=== PATIENT | male | born 1955 | race Caucasian/White ===

== ENCOUNTER 2021-08-14 16:45 | Emergency (ER) | payer OTHER, SELFPAY ==
[2021-08-14 17:00] VITALS: BP 122/81; PULSE 95; RESP 16; TEMP 36.8; O2SAT 98
--- NOTE | 2021-08-14 17:25 | ED.SKABFB ---
HPI - Skin/Abscess/Foreign Bdy General Chief complaint: Skin/Abscess/Foreign Body Stated complaint: poison valente Time Seen by Provider: 08/14/21 17:18 Source: patient and RN notes reviewed Mode of arrival: ambulatory Limitations: no limitations History of Present Illness HPI narrative: Patient presents today complaining of poison valente to the bilateral arms and face since yesterday, significantly worse today. He was exposed 2 days ago when he was cleaning brush at home. He has tried some topical Benadryl without relief. Denies shortness of breath, difficulty swallowing, swelling in the mouth. MD complaint: rash Related Data Home Medications Medication Instructions Recorded Confirmed amlodipine 5 mg PO DIRECTED 08/14/21 08/14/21 carbamazepine 200 mg PO DIRECTED 08/14/21 08/14/21 clopidogrel 75 mg PO DAILY 08/14/21 08/14/21 fluoxetine 20 mg PO DAILY 08/14/21 08/14/21 metformin 500 mg PO DIRECTED 08/14/21 08/14/21 metoprolol tartrate 25 mg PO DIRECTED 08/14/21 08/14/21 simvastatin 40 mg PO DIRECTED 08/14/21 08/14/21 Allergies Allergy/AdvReac Type Severity Reaction Status Date / Time No Known Allergies Allergy Unverified 08/14/21 17:07 Review of Systems Review of Systems: CONSTITUTIONAL: Denies body aches, fever, chills, or sweats. EYES: Denies visual changes, redness, or discharge. ENT: Denies rhinorrhea, congestion, sore throat, or otalgia. CARDIOVASCULAR: Denies chest pain, palpitations, or edema. RESPIRATORY: Denies cough or dyspnea. GASTROINTESTINAL: Denies abdominal pain, nausea, vomiting, or diarrhea. GENITOURINARY: Denies dysuria or hematuria. SKIN: Denies wounds.+ Pruritic rash MUSCULOSKELETAL: Denies back pain, joint pain, or myalgia. NEUROLOGIC: Denies headache, numbness, tingling, or weakness. PSYCH: Denies depression or anxiety. [facility]LY [facility] Past Medical History Medical History (Updated 08/14/21 @ 17:34 by Arin Shields, PSYCHOLOGICAL OPERATIONS SPECIALIST, ) CVA (cerebral vascular accident) Depression Epilepsy High cholesterol Hypertension Comments At time of signature, I have reviewed and agree with nursing past medical, surgical, social and family history unless otherwise noted. Please see nursing chart for further information. There is no relevant family history pertinent to the presenting complaint Exam Narrative: GENERAL: Well-appearing, well-nourished, and in no acute distress. HEAD: Normocephalic, atraumatic. EYES: EOMI. No redness or drainage. Conjunctivae normal. ENT: Mucous membranes pink and moist. NECK: Normal AROM. CHEST: No respiratory distress. EXTREMITIES: Normal range of motion. No edema. SKIN: Warm, dry. Capillary refill normal. Normal skin turgor. Erythematous maculopapular rash to the entire bilateral anterior forearm extending to the antecubital fossa and to the left bicep. Erythematous macular rash surrounds both eyes and above the left eyebrow, and slightly on the nasal bridge. NEURO: No focal deficits. Alert and oriented x3. Gait steady. PSYCH: Normal affect. No signs of depression or anxiety. Course Course Level of Care: Express Care Visit Vital Signs Vital signs: Vital Signs Temperature 98.3 F 08/14/21 17:00 Pulse Rate 95 08/14/21 17:00 Respiratory Rate 16 08/14/21 17:00 Blood Pressure 122/81 08/14/21 17:00 Pulse Oximetry 98 08/14/21 17:00 Temperature 98.3 F 08/14/21 17:00 Pulse Rate 95 08/14/21 17:00 Respiratory Rate 16 08/14/21 17:00 Blood Pressure 122/81 08/14/21 17:00 Pulse Oximetry 98 08/14/21 17:00 Reviewed. Pt has been instructed to follow up with his PCP regarding his elevated blood pressure today. MDM - Skin/Abscess/Foreign Bdy Differential Diagnosis Differential diagnosis: Likely viral exanthem, urticaria, cellulitis, eczema, impetigo and contact dermatitis Critical Care Time Critical Care Time Critical Care Time: No Discharge Plan Discharge Clinical Impression: Poison valente dermatitis Patient Dispositio
== END 2021-08-14 17:32 | disposition home or self-care (01) ==
PROVIDERS: Emergency Provider Nurse Practitioner
DX: L23.7 Allergic contact dermatitis due to plants, except food (principal); E78.00 Pure hypercholesterolemia, unspecified; I10 Essential (primary) hypertension; F32.A Depression, unspecified; Z86.73 Personal history of transient ischemic attack (TIA), and cerebral infarction without residual deficits; G40.909 Epilepsy, unspecified, not intractable, without status epilepticus
CPT/HCPCS: 99213; G0463

== ENCOUNTER 2022-05-22 14:02 | Emergency (ER) | payer OTHER, SELFPAY ==
--- NOTE | 2022-05-22 15:05 | ED.GENADULT ---
HPI - General Adult General Chief complaint: Upper Respiratory Infection Stated complaint: Sore Throat/Chills/Cough,Weakness Time Seen by Provider: 05/22/22 15:05 Source: patient, RN notes reviewed and old records reviewed Mode of arrival: ambulatory Limitations: no limitations History of Present Illness HPI narrative: 67-year-old male presents to the [facility] with generalized weakness that started last night. Significant other reports unable to walk steady. History of strokes, hypertension, diabetes. Has not checked blood sugar today. Patient is toxic and fever I will on arrival. Not answering questions appropriately, slow to answer Onset (ago): day(s) (1) Related Data Home Medications Medication Instructions Recorded Confirmed amlodipine 5 mg tablet 5 mg PO DIRECTED 08/14/21 08/14/21 carbamazepine 200 mg 200 mg PO DIRECTED 08/14/21 08/14/21 tablet,extended release,12 hr clopidogrel 75 mg tablet 75 mg PO DAILY 08/14/21 08/14/21 fluoxetine 20 mg capsule 20 mg PO DAILY 08/14/21 08/14/21 metformin 500 mg tablet 500 mg PO DIRECTED 08/14/21 08/14/21 metoprolol tartrate 25 mg tablet 25 mg PO DIRECTED 08/14/21 08/14/21 simvastatin 40 mg tablet 40 mg PO DIRECTED 08/14/21 08/14/21 Allergy Med. 05/22/22 baclofen 10 mg tablet mg 05/22/22 montelukast 10 mg tablet mg 05/22/22 Allergies Allergy/AdvReac Type Severity Reaction Status Date / Time No Known Allergies Allergy Unverified 05/22/22 16:01 Review of Systems Review of Systems: All systems reviewed & are unremarkable except as noted in HPI and below Constitutional: Constitutional: Reports as per HPI, Reports body ache(s), Reports fatigue, Reports fever(s) and Reports weakness Eyes: Eyes: Reports no additional eye complaints ENT: Reports system reviewed and no additional complaints, except as documented Cardiovascular: Cardiovascular: Reports no additional cardiovascular complaints, Denies chest pain and Denies dyspnea Respiratory: Respiratory: Reports no additional respiratory complaints, Denies chest congestion, Denies cough and Denies dyspnea Gastrointestinal: Gastrointestinal: Reports no additional gastrointestinal complaints, Denies abdominal pain, Denies nausea and Denies vomiting Musculoskeletal: Musculoskeletal: Reports no additional musculoskeletal complaints Integumentary/Breasts: Skin/Breast: Reports system reviewed and no additional complaints, except as docu Neurologic: Reports system reviewed and no additional complaints, except as documented Psychiatric: Psychiatric: Reports no additional psychiatric complaints Allergic/Immunologic: Allergic/Immunologic: Reports no additional allergic/immunologic complaints PMFSH Past Medical History Medical History CVA (cerebral vascular accident) Depression Epilepsy High cholesterol Hypertension Comments At the time of my signature, I reviewed and agree with the nursing past medical, surgical, social, and family history. There is no relevant family history pertinent to the patient complaint. Exam Const: General: cooperative, no acute distress, well developed, alert, diaphoretic, ill appearing acutely and chronically, poor hygiene, uncomfortable and well nourished Nutritional Appearance: well nourished Orientation/consciousness: patient oriented x3 Limitations: no limitations HENMT: Head: normal to inspection Ears: hearing grossly normal bilaterally and external ears normal Face/Nose/Sinus: Normal external nose present, Normal nares present, Normal nasal mucous membranes and turbinates present and normal facial exam Face and sinus: normal facial exam Mouth: Yes Normal oral and palatal mucosa present, Yes lip normal and Yes moist mucous membranes Throat: posterior oropharynx normal and uvula midline Eyes: General: appearance normal, both eyes and all related structures Alignment and Position: alignment normal Periorbital: shannon
[2022-05-22 15:06] VITALS: BP 148/86; PULSE 113; RESP 16; TEMP 38.4; O2SAT 97
[2022-05-22 15:19] LABS: Glucose Point of Care 146 mg/dl (65-105)
--- NOTE | 2022-05-22 15:20 | ECG_ITS ---
Measurements Intervals [place] Rate: 103 P: 47 GA: 185 QRS: -56 QRSD: 162 T: 107 QT: 379 QTc: 498 Interpretive Statements SINUS TACHYCARDIA LEFT BUNDLE BRANCH BLOCK ABNORMAL ECG COMPARED TO ECG 05/22/2022 15:16:55 NO SIGNIFICANT CHANGE Electronically Signed On 05-23-2022 15:42:51 FACE BOSS by Nico Khan M.D.
== END 2022-05-22 15:32 | disposition short-term general hospital (02) ==
PROVIDERS: Emergency Provider Nurse Practitioner; PCP Radiology Radiation Oncology
DX: U07.1 COVID-19 (principal); R53.1 Weakness; I10 Essential (primary) hypertension; E11.9 Type 2 diabetes mellitus without complications
CPT/HCPCS: 82948; 87426; 87804; 93005; 99215; C9803; G0463

== ENCOUNTER 2022-05-22 15:45 | Emergency (ER) | payer OTHER, SELFPAY ==
[2022-05-22] VITALS (21 sets, daily range): BP systolic 131–231; BP diastolic 79–196; PULSE 100–118; RESP 19–29; TEMP 36.8; O2SAT 95–98
--- NOTE | ~2022-05-22 | XR_ITS ---
EXAMINATION: XR chest 1V portable Exam Date/Time: 05/22/2022 17:30 HIGH SCHOOL FOREIGN LANGUAGE TUTOR HISTORY: cough, ACHES/PAINS, Comparison: None available. RESULT: Lines, tubes, and devices: None. Lungs and pleura: Segmental consolidation in the left lower lung. Cardiomediastinal silhouette: Stable. Other: No acute osseous or upper abdominal finding. IMPRESSION: Left lower lobe consolidation, suspicious for pneumonia. Reviewed, dictated and finalized at location K. SCHOOL FOREIGN LANGUAGE TUTOR
--- NOTE | 2022-05-22 16:56 | ECG_ITS ---
Measurements Intervals [place] Rate: 116 P: 33 WA: 159 QRS: -50 QRSD: 157 T: 112 QT: 353 QTc: 491 Interpretive Statements SINUS TACHYCARDIA LEFT BUNDLE BRANCH BLOCK ABNORMAL ECG NO PREVIOUS ECG AVAILABLE FOR COMPARISON Electronically Signed On 05-23-2022 15:37:54 FLIGHT OPERATIONS ENGINEER by Nico Khan M.D.
--- NOTE | 2022-05-22 17:02 | ED.GENADULT ---
HPI - General Adult General Chief complaint: Fever Stated complaint: COVID+ Time Seen by Provider: 05/22/22 16:09 History of Present Illness HPI narrative: Patient is a 67-year-old male with history of hypertension, CVA presenting with fever, tachycardia, cough and generalized weakness. Reports these symptoms onset yesterday. Reports feeling very warm. He states he has not had anything PO today due to lack of appetite. He was seen in urgent care facility and transferred to our emergency department for further evaluation. he denies chest pain or shortness of breath. Denies abdominal pain, nausea, vomiting. Related Data Home Medications Medication Instructions Recorded Confirmed amlodipine 5 mg tablet 5 mg PO DIRECTED 08/14/21 08/14/21 carbamazepine 200 mg 200 mg PO DIRECTED 08/14/21 08/14/21 tablet,extended release,12 hr clopidogrel 75 mg tablet 75 mg PO DAILY 08/14/21 08/14/21 fluoxetine 20 mg capsule 20 mg PO DAILY 08/14/21 08/14/21 metformin 500 mg tablet 500 mg PO DIRECTED 08/14/21 08/14/21 metoprolol tartrate 25 mg tablet 25 mg PO DIRECTED 08/14/21 08/14/21 simvastatin 40 mg tablet 40 mg PO DIRECTED 08/14/21 08/14/21 Allergy Med. 05/22/22 baclofen 10 mg tablet mg 05/22/22 montelukast 10 mg tablet mg 05/22/22 Allergies Allergy/AdvReac Type Severity Reaction Status Date / Time No Known Allergies Allergy Unverified 05/22/22 16:01 Review of Systems Review of Systems: 10 point review of systems performed and negative except per HPI [facility] Past Medical History Medical History CVA (cerebral vascular accident) Depression Epilepsy High cholesterol Hypertension Exam Narrative: APPEARANCE: No acute distress, nontoxic, resting in bed EYES: EOMI HEENT: Normocephalic, atraumatic, OMM RESPIRATORY: No respiratory distress Rales in LLL otherwise CTAB. CARDIOVASCULAR: Tachycardic, regular rhythm without murmurs rubs or gallops. ABDOMINAL: Soft, nontender, nondistended, no rebound or guarding MUSCULOSKELETAl: Moves all extremities. No clubbing, cyanosis or edema. NEURO: Awake and alert. Following commands, speech normal, no focal deficits SKIN:: Warm, dry. No rashes lesions or abrasions PSYCHIATRIC: Normal affect/mood, Course Vital Signs Vital signs: Vital Signs Temperature 98.3 F 05/22/22 15:47 Pulse Rate 110 H 05/22/22 15:47 Respiratory Rate 20 05/22/22 15:47 Blood Pressure 135/114 H 05/22/22 15:47 Pulse Oximetry 96 05/22/22 15:47 Oxygen Delivery Room Air 05/22/22 15:47 Temperature 98.3 F 05/22/22 15:47 Pulse Rate 109 H 05/22/22 19:26 Respiratory Rate 21 H 05/22/22 19:26 Blood Pressure 158/89 H 05/22/22 19:26 Pulse Oximetry 98 05/22/22 19:26 Oxygen Delivery Room Air 05/22/22 15:47 Medical Decision Making MDM Narrative Medical decision making narrative: Patient tachycardic but otherwise nontoxic. Work-up consistent with pneumonia with consolidation of left lower lobe concerning for community-acquired pneumonia though patient is COVID-positive. Will initiate Augmentin, doxycycline, Paxil bed. Patient curb 67 score of 1 for age and is appropriate for outpatient therapy Called patient's POA Gloria Surekha [phone] who confirms the patient has been at baseline until he reports feeling ill today. Complaining mostly of cough and fever. He is at his baseline mental status. He has been complaining of right lower extremity pain. I discussed with patient he reports he has had pain in his right knee for greater than 1 month. He reports this is off and on. Not consistent with DVT. Patient stable for discharge with outpatient therapy. Paxil interacts with some of patient's home medications most notably clopidogrel and carbamazepine. Discussed with Jenifer RodrigezSonia who states that patient has not had a seizure since 2012. Recommend ceasing this medication for the next 5 days while taking Paxil and
[2022-05-22] MEDS: LACTATED RINGERS 1,000 ML 999 ML IV CONT ×2 (17:38→17:40)
[2022-05-22 18:13] LABS: Basophils Absolute Auto 0.1 K/mm3 (0.0-0.1); Basophils Percent Auto 0.5 % (0.2-1.2); Eosinophils Percent Auto 0.1 % (0-4.4); Hemoglobin 15.6 g/dL (14.0-18.0); Immature Granulocyte Absolute 0.04 K/mm3 (0.00-0.031); Immature Granulocyte Percent A 0.4 % (0-0.5); Lymphocytes Absolute Auto 1.46 K/mm3 (0.9-3.2); Lymphocytes Percent Auto 14.7 % (18.3-44.2); Mean Corpuscular HGB Conc 33.2 g/dl (32-36); Mean Corpuscular Hemoglobin 30.8 pg (26-34); Mean Corpuscular Volume 92.9 fl (80-100); Mean Platelet Volume 9.3 fl (7.4-10.4); Monocytes Absolute Auto 1.5 K/mm3 (0.1-0.6); Monocytes Percent Auto 15.3 % (2.6-8.5); Neutrophils Absolute Auto 6.9 K/mm3 (1.3-6.7); Platelet Count Result 174 k/mm3 (150-375); Red Blood Count 5.06 M/mm3 (4.6-6.20); Red Cell Distribution Width 13.2 % (11.5-14.5); White Blood Count 9.9 K/mm3 (4.5-10.0)
[2022-05-22 18:21] LABS: Lactic Acid Reflex 1.8 mmol/L (0.7-2.0)
[2022-05-22 18:22] LABS: Alanine Aminotransferase 40 U/L (6-50); Albumin Level 4.5 g/dL (3.5-5.1); Alkaline Phosphatase 107 U/L (38-126); Anion Gap 7 mmol/L (8-16); Aspartate Amino Transferase 30 U/L (17-59); Bilirubin,Total 0.4 mg/dL (0.2-1.3); Blood Urea Nitrogen 14 mg/dL (9-20); Calcium 8.7 mg/dL (8.4-10.2); Carbon Dioxide 31 mmol/L (22-30); Chloride 100 mmol/L (98-107); Estimated CRCL calculation 88 ml/min; Estimated Glomerular Filt Rate > 60; Glucose 129 mg/dL (65-110); Sodium 138 mmol/L (137-145)
[2022-05-22 18:23] LABS: INR 1.1; Prothrombin Time 13.8 Seconds (11.1-14.7)
[2022-05-22 18:24] LABS: Partial Thromboplastin Time 27.1 SECONDS (22.3-36.8)
[2022-05-22 18:33] LABS: Troponin I < 0.012 ng/mL (0.000-0.034)
[2022-05-22] MEDS: DOXYCYCLINE HYCLATE 100 MG TABLET PO (19:27)
[2022-05-22] MEDS: AMOXICILLIN/CLAVULANATE K 875-125 MG TAB 1 TABLET PO (19:27)
--- NOTE | 2022-05-22 19:31 | PC.NURSE ---
Report received from BEBO Mcdonnell. Assumed care of patient at this time.
== END 2022-05-22 20:25 | disposition home or self-care (01) ==
PROVIDERS: Emergency Provider Emergency Medicine; PCP Radiology Radiation Oncology
DX: U07.1 COVID-19 (principal); J12.82 Pneumonia due to coronavirus disease 2019; I10 Essential (primary) hypertension; Z86.73 Personal history of transient ischemic attack (TIA), and cerebral infarction without residual deficits; G40.909 Epilepsy, unspecified, not intractable, without status epilepticus; E78.00 Pure hypercholesterolemia, unspecified
CPT/HCPCS: 36415; 71045; 80053; 82948; 83605; 84484; 85025; 85610; 85730; 87040; 87426; 87804; 93005; 96360; 96361; 99284; A9270; C9803; J7120

== ENCOUNTER 2024-08-10 09:57 | Outpatient (RCR) | payer OTHER, SELFPAY ==
--- NOTE | 2024-08-10 12:00 | OTOPEVDC ---
Assessment and note entered by Mumtaz Hoyos, OTR/L, CHT Thank you for referring Sunny Chang to [facility].? An evaluation has been completed. No further treatment is needed. OT W/C EVAL SUMMARY 08/10/24 Assessment Status Evaluation Subjective Information Patient referred to this clinic for wheelchair eval. Please refer to 12 page seating/mobility evaluation form for details. Reported Pain Level Pain Score 0: Self Report Assessment OT Clinical Summary Patient referred for wheelchair evaluation. Patient arrived to the clinic with his partner, Gloria. He was able to transfer independently and walk the distance back to the 150+ feet independently. He did not display any shortness of breath or loss of balance. He demonstrates safe and functional sitting and standing balance. UE and LE strength and ROM is WNL. The patient reports he is interested in a scooter for community mobility, not use for in the home. Discussed with the patient and his partner that a scooter for a home use is not justifiable at this time. Thank you for this referral. Plan of Care OT Services Indicated No
== END 2024-08-10 14:28 | disposition home or self-care (01) ==
LOC: ANHOT 09:57
PROVIDERS: PCP Radiology Radiation Oncology; Visit Provider Family Medicine
DX: I63.9 Cerebral infarction, unspecified (principal)
CPT/HCPCS: 97167

== ENCOUNTER 2025-05-13 13:09 | Outpatient (CLI) | payer OTHER, SELFPAY ==
--- NOTE | ~2025-05-13 | PE_ITS ---
EXAMINATION: PET_PETPSMAST_PT DATE: 05/14/2025 08:39 INDICATION: Prostate cancer TECHNIQUE: 5.69 mCi of Illucix Ga-68([id number]) was administered i.v. Low dose computed tomography (CT) images were acquired from the base of the brain to the base of the brain to the proximal thighs for attenuation correction and anatomic localization. Positron emission tomography (PET) images were acquired in the same distribution beginning 51 minutes after injection. Images including fused PET/CT images were reconstructed in axial, coronal, and sagittal planes. Automated exposure control technique was employed. The dose-length product was 861.28mGy-cm. COMPARISON: None FINDINGS: Head/neck: Typical pattern of symmetric physiologic increased activity in the lacrimal, parotid and submandibular glands as well as along the mucosa of the nasal and oral cavities, pharynx and hypopharynx. No pathologically enlarged cervical lymphadenopathy or suspicious foci of increased uptake in the visualized head or neck. Chest: Mild dependent atelectasis in both lungs. Small pneumatocele in the left lower lobe as well as a calcified nodule consistent with old granulomatous disease. No other suspicious pulmonary nodules, pneumonia, pulmonary edema or pleural effusion. Mild cardiomegaly. Atherosclerotic coronary artery calcification. Small pericardial effusion. Thoracic aorta is normal in caliber. No pathologically enlarged or PSMA avid thoracic lymphadenopathy. Abdomen/pelvis/proximal thighs: Physiologic renal accumulation and excretion of activity in the kidneys, bladder and along portions of ureters. 1 cm exophytic soft tissue density lesion at the lower pole the left kidney. Small focus of increased uptake with maximal SUV of 7.4 at the right posterior aspect of the small prostate consistent with primary prostate cancer. Normal degree and slightly heterogenous pattern of increased uptake throughout the liver and spleen without radiologic correlate or dominant PSMA avid lesion. There is a 1.8 cm photopenic low-attenuation cyst in the right hepatic lobe. The gallbladder, pancreas and bilateral adrenal glands are normal. Moderate uptake scattered throughout the bowels with typical duodenal and proximal jejunal predominance and without radiologic correlate, also likely physiologic. Normal appendix. A few sigmoid diverticula without adjacent from trace stranding to suggest diverticulitis. There are a couple PSA may avid left common iliac chain lymph nodes the larger and more cephalad measuring 7 mm in maximal short axis diameter with maximal SUV of 10.7 and the more caudal measuring 4 mm in short axis diameter with maximal SUV of 4.6 consistent with metastatic disease.. There is a 4 mm lymph node along the anterior margin of the aortic bifurcation with maximal SUV of 3.9. There are couple additional tiny PSMA avid lymph nodes along the left external iliac chain with maximal SUV cecile ues of 3.2 and 2.4. Musculoskeletal: Mild thoracic dextrocurvature with mild spondylosis. Subacute healing fracture of the anterior right 10th rib. No suspicious lytic, blastic or abnormally PSMA avid bone lesions. IMPRESSION: 1. Small focus of increased uptake at the right posterior aspect of the small prostate consistent with primary prostate cancer. 2. Normal-sized but abnormally PSA may avid lymph nodes along the left external and common iliac chains consistent with metastatic disease. 3. Indeterminate 1 cm exophytic soft tissue density lesion at the lower pole the left kidney statistically most likely to represent a proteinaceous/hemorrhagic cyst although differential includes renal cell carcinoma. Recommend follow-up pre and postcontrast MRI or CT. 4. Mild cardiomegaly with small pericardial effusion. Reviewed, dictated and finalized at location A. OR SOFTWARE QA ANALYST IMPRESSION: 1. Small focus of increased uptake at the right posterior aspect of the small p rostate consistent with primary prostate cancer. 2. Normal-sized but abnormally PSA may avid lymph nodes along the left external and common iliac chains consistent with metastatic disease. 3. Indeterminate 1 cm exophytic soft tissue density lesion at the lower pole th e left kidney statistically most likely to represent a proteinaceous/hemorrhagi c cyst although differential includes renal cell carcinoma. Recommend follow-up pre and postcontrast MRI or CT. 4. Mild cardiomegaly with small pericardial effusion.
== END 2025-05-13 13:10 | disposition home or self-care (01) ==
PROVIDERS: PCP Family Medicine; Visit Provider Urology
DX: C61 Malignant neoplasm of prostate (principal); I51.7 Cardiomegaly; I31.39 Other pericardial effusion (noninflammatory)
CPT/HCPCS: 78815; A9596